=== PATIENT | male | born 1975 | race Caucasian/White ===

== ENCOUNTER 2023-12-29 16:03 | Outpatient (OUT) | payer BC, SELFPAY ==
[2023-12-31 09:10] LABS: Lyme Total Antibody CIA Negative (Negative)
== END 2023-12-29 16:04 | disposition home or self-care (01) ==
LOC: LAB 16:09
PROVIDERS: PCP Internal Medicine; Visit Provider Internal Medicine
DX: S80.862A Insect bite (nonvenomous), left lower leg, initial encounter (principal); W57.XXXA Bitten or stung by nonvenomous insect and other nonvenomous arthropods, initial encounter
CPT/HCPCS: 36415; 86618